=== PATIENT | male | born 1990 | race Caucasian/White ===

== ENCOUNTER 2017-11-05 18:44 | Emergency (ER) | payer OTHER ==
[~2017-11-05] VITALS: Ht 182.9 cm; Wt 107.0 kg
[2017-11-05 18:57] VITALS: Ht 182.9 cm; Wt 107.0 kg
[2017-11-05 20:23] VITALS: BP 123/82
== END 2017-11-05 21:00 | disposition home or self-care (01) ==
LOC: ED 18:44
DX: S69.81XA Other specified injuries of right wrist, hand and finger(s), initial encounter (principal); W22.8XXA Striking against or struck by other objects, initial encounter; Y93.89 Activity, other specified; Y92.89 Other specified places as the place of occurrence of the external cause; Y99.8 Other external cause status
CPT/HCPCS: 90715